=== PATIENT | male | born 1980 ===

== ENCOUNTER 2023-11-22 16:38 | Outpatient (CLI) | payer OTHER, SELFPAY ==
--- NOTE | ~2023-11-22 | XR_ITS ---
EXAMINATION: XR shoulder RT min 2V DATE: 11/22/2023 17:34 INDICATION: Right shoulder pain TECHNIQUE: AP internally and externally rotated, AP oblique externally rotated and transscapular Y vi ews of the right shoulder were obtained. COMPARISON: None FINDINGS: Normal alignment. No fracture. Glenohumeral joint is normal. Mild acromioclavicular osteoarthritis. Soft tissues are unremarkable. IMPRESSION: Mild right acromio clavicular osteoarthritis. No acute osseous abnormality. Reviewed, dictated and finalized at location A.
== END 2023-11-22 16:39 | disposition home or self-care (01) ==
LOC: MICIMG 16:41
PROVIDERS: PCP Internal Medicine; Visit Provider Internal Medicine
DX: M19.011 Primary osteoarthritis, right shoulder (principal)
CPT/HCPCS: 73030